=== PATIENT | male | born 1980 | race Asian ===

== ENCOUNTER 2016-09-26 06:06 | Day surgery (SDC) | payer OTHER ==
[~2016-09-26 06:06] MED LIST: APIX5TAB PO; BACL10TA PO; GABA-586 PO; LISI10TA2 PO; OXYC10TA PO
[2016-09-26] MEDS ORDERED: MORPHINE SULFATE 2 MG/ML DISP.SYRIN. IV PRN (07:00)
[2016-09-26] MEDS ORDERED: ONDANSETRON PF 4 MG/2 ML VIAL. IV PRN (07:00)
[2016-09-26] MEDS ORDERED: fentaNYL PF VIAL 100 MCG/2 ML VIAL IV PRN (07:00)
[2016-09-26] MEDS ORDERED: PROCHLORPERAZINE 10 MG/2 ML VIAL. IV PRN (07:00)
[2016-09-26] MEDS ORDERED: IV RINGERS,LACTATED 1000ML 1,000 ML IV SCH (07:00)
[2016-09-26] MEDS ORDERED: LIDOCAINE 1% 1 ML SYRINGE. ID PRN (07:00)
[2016-09-26] MEDS ORDERED: PROPOFOL 20 ML IV ONE (07:22)
[2016-09-26] MEDS ORDERED: SEVOFLURANE 31 TO 60 MINUTES. IH ONE (07:22)
[2016-09-26] MEDS ORDERED: fentaNYL PF VIAL 100 MCG/2 ML VIAL ONE (07:22)
[2016-09-26] MEDS ORDERED: LIDOCAINE 2% PF Vial for OR 5 ML VIAL. ONE (07:22)
[2016-09-26] MEDS ORDERED: THROMBIN TOPICAL 5,000 UNIT VIAL. ONE (07:50)
[2016-09-26] MEDS ORDERED: THROMBIN TOPICAL 20,000 UNIT SPRAY.SYRN KIT TP ONE (07:51)
[2016-09-26] MEDS ORDERED: ONDANSETRON PF 4 MG/2 ML VIAL. ONE (07:52)
[2016-09-26] MEDS ORDERED: DEXAMETHASONE SOD PHOS 20 MG/5 ML VIAL. ONE (07:52)
[2016-09-26] MEDS ORDERED: ePHEDrine PF IN SALINE 50 MG/5 ML DISP.SYRIN IV ONE (08:27)
[2016-09-26] MEDS ORDERED: BUPIVACAINE 0.25% 50 ML VIAL. ONE (08:55)
[2016-09-26] MEDS: fentaNYL PF VIAL 100 MCG/2 ML VIAL IV PRN ×2 (09:30→09:42)
--- NOTE | 2016-09-26 09:48 | DISCH ---
DISCHARGE INSTRUCTIONS Condition on Discharge Condition on Discharge: Stable Activity After Discharge Activity Instructions for Disc: Other, see below Other activity instructions: gentle motion to right knee 0-90 degrees, leg lifts, ankle pumps Weight Bearing Status after Di: Non weight bearing Diet after Discharge Diet after Discharge: Regular Wound Incision Care Wound/Incision Care: Ice to area for comfort, Keep wound elevated, Change dressing Other wound/incision instructi: remove dressing 3 days may then shower Community/Resources/Services Services at Discharge: PT EVALUATE & TREAT (Dennis protocol for specific restrictions) Contacting the DRDanica after DC Call your doctor for: Concerns you may have Follow-Up Follow up with: Wilman 10 days Treatment/Equipment after DC Adaptive Equipment Issued: REECE Hayward MD Sep 26, 2016 09:48
[2016-09-26] MEDS ORDERED: OXYC10TA45 PO (09:49)
[2016-09-26] MEDS: HYDROmorphone 2 MG/ML VIAL IV PRN ×2 (09:57→10:11)
[2016-09-26 10:26] VITALS: BP 138/75
[2016-09-26] MEDS ORDERED: APIXABAN 5 MG TABLET. PO SCH (11:00)
[2016-09-26] MEDS ORDERED: oxyCODONE ER 10 MG TAB.ER.12H PO SCH ×2 (11:00→21:00)
--- NOTE | 2016-09-27 09:44 | PDOC ---
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 I did gone over treatment options with him including possibility of microfracture or other procedures that would result in formation of fibrocartilage to fill in the defect, and juvenile cartilage transplant that actually has been proven histologically to restore hyaline cartilage which was preferable in this young very active individual. I had gone over with him the strict postoperative regimen of weightbearing restriction and the long healing process the possibility of infection nerve or blood vessel damage medical or other anesthetic complications among others. All his questions were answered he wants to proceed with surgical evaluation and treatment. Operative text: Patient was identified procedure verified patient placed in the supine position on the operating room table with a thigh tourniquet after adequate amounts of general endotracheal anesthesia were administered the right lower extremity was prepped and draped in standard sterile fashion after timeout was performed patient procedure identified and verified the right lower extremity was exsanguinated by Esmarch bandage tourniquet inflated to 250 mmHg and a longitudinal incision was made in line with the lateral portal area paralleling the lateral aspect of the patellar tendon extending slightly to the lower portion of the retinaculum. Bleeding points were controlled by electrocautery fat pad was retracted and the lateral femoral condyle was exposed revealing as expected a longitudinal full thickness defect slightly less longer than expected in about 2-1/2 cm lengthwise and approximately 6-7 mm on average widthwise. This was slightly less than reported on his initial arthroscopic operative note elsewhere but certainly consistent with the arthroscopic photographs. The edges were freshened up with a curette and any irregular cartilage removed avoiding any bleeding at the interface. As an additional precautions from that was placed around the edges of the fat pad and at the base of the defect. Next Tisseel fibrin glue was placed at the bottom of the defect and 1 package of DeNovo cartilage graft was packed in the defect ensuring that the level of the cartilage graft was slightly recessed from the cartilage surface to avoid any abrasion or washout and the cartilage graft was covered again with Tisseel which was allowed to dry until rubbery and regular for about 10 minutes. He was then taken through range of motion tourniquet was let down again bleeding points in the fat pad were controlled by electrocautery retinaculum was closed with #1 Vicryl suture subcutaneous closure in a layered fashion with buried Vicryl suture skin closure with Monocryl #4-0 subcuticular Steri-Strips and Mastisol were applied as were sterile compressive dressings patient was returned recovery room having tolerated the procedure well. REECE REAL MD Sep 27, 2016 09:43
== END 2016-09-26 11:40 | disposition home or self-care (01) ==
LOC: SURG 06:06
PROVIDERS: ATTEND Orthopaedic Surgery
DX: M22.41 Chondromalacia patellae, right knee (principal); I10 Essential (primary) hypertension; Z86.69 Personal history of other diseases of the nervous system and sense organs; Z87.39 Personal history of other diseases of the musculoskeletal system and connective tissue; Z72.89 Other problems related to lifestyle; Z87.891 Personal history of nicotine dependence
CPT/HCPCS: 27415; 97162; C1763; J0690; J1100; J1170; J2001; J2405; J2704; J3010; J3490